=== PATIENT | male | born 1990 | race Caucasian/White ===

== ENCOUNTER 2017-02-27 09:37 | Emergency (ER) | payer OTHER ==
[~2017-02-27] VITALS: Ht 182.9 cm; Wt 90.0 kg
[~2017-02-27 09:37] MED LIST: DOCU-144 PO; TRAM50TA2 PO
[2017-02-27 09:38] VITALS: Ht 182.9 cm; Wt 90.0 kg
[2017-02-27] MEDS ORDERED: HYDROCODONE/APAP (10/325) TAB PO ONE (10:30)
[2017-02-27] MEDS ORDERED: KETOROLAC 30 MG INJ IM STA (11:21)
[2017-02-27] MEDS ORDERED: IBUP-1542 PO (11:51)
[2017-02-27] MEDS ORDERED: HYDR-906 PO (11:52)
--- NOTE | 2017-02-27 11:59 | ERD ---
ER Documentation Chief Complaint Date/Time DATE: 02/27/17 TIME: 11:54 Chief Complaint left foot pain HPI Patient is a 26-year-old male with a history of plantar fasciitis presents emergency department with left foot pain 2 days. Patient states the pain was significantly worse upon waking up this morning. Patient states he took ibuprofen with no relief of symptoms. Patient is unable to bear weight to his left foot due to "burning pain". Patient denies any fevers or chills. Patient denies any trauma or falls. Patient denies any knee pain, ankle pain. Patient denies any previous fractures or dislocations. ROS All systems reviewed and are negative except as per history of present illness. Medications Home Meds Active Scripts Hydrocodone/Acetaminophen ([place] 5-325 Tablet) 1 Each Tablet, 1 TAB PO Q6H Y for PAIN, #10 TAB Prov:TRE BAEZA PA-C 02/27/17 Ibuprofen* (Motrin*) 600 Mg Tab, 600 MG PO Q6, #30 TAB Prov:TRE BAEZA PA-C 02/27/17 Tramadol HCl (Tramadol HCl) 50 Mg Tablet, 50 MG PO Q6 Y for PAIN, #6 TAB Prov:ROMARIO MAURICIO DO 09/24/15 Docusate Sodium* (Colace*) 100 Mg Capsule, 200 MG PO BID, #30 CAP Prov:ROMARIO MAURICIO DO 09/24/15 Allergies Allergies: Coded Allergies: No Known Allergy (Unverified , 03/01/14) PMhx/Soc History of Surgery: Yes (Eye 1993) Anesthesia Reaction: No Hx Neurological Disorder: No Hx Respiratory Disorders: No Hx Cardiac Disorders: No Hx Psychiatric Problems: No Hx Miscellaneous Medical Probl: No Hx Alcohol Use: Yes (socially) Hx Substance Use: Yes (Marijuana) Hx Tobacco Use: Yes Smoking Status: Never smoker FmHx Family History: No diabetes Physical Exam Vitals Vital Signs Date Time Temp Pulse Resp B/P Pulse Ox O2 Delivery O2 Flow Rate FiO2 02/27/17 09:38 98.1 110 18 125/63 99 Physical Exam GENERAL: Well-developed, well-nourished male. Appears in no acute distress. HEAD: Normocephalic, atraumatic. EYES: Pupils are equally reactive bilaterally. EOMs grossly intact. No conjunctival erythema. ENT: Moist mucous membranes. No uvula deviation. No kissing tonsils. NECK: Supple. No meningismus. Normal range of motion of the neck. LUNG: Clear to auscultation bilaterally. No rhonchi, wheezing, rales or coarse breath sounds. EXTREMITIES: Equal pulses bilaterally. No peripheral clubbing, cyanosis or edema. No unilateral leg swelling. NEUROLOGIC: Alert and oriented. Moving all four extremities without any difficulty. Normal speech. Steady gait. SKIN: Normal color. Warm and dry. No rashes or lesions. LEFT FOOT: No deformity, erythema, ecchymosis or swelling. Skin intact. Full ROM of the toes, ankle and knee. Tender to palpation of the midfoot. Pain with bearing weight on foot. Nontender palpation of the fifth metatarsal, ankle or distal tibia/fibula. Sensation intact to light touch. Neurovascularly intact. ( Able to plantarflex, dorsiflex, michael foot, invert foot, raise big toe.) 2+ DP pulses. Results 24 hrs Current Medications Medications (Trade) Dose Ordered Sig/Jocelyn Route PRN Reason Start Time Stop Time Status Last Admin Dose Admin Acetaminophen/ Hydrocodone Bitart (Dover (10/325)) 1 tab ONCE ONCE PO 02/27/17 10:30 02/27/17 10:31 DC 02/27/17 10:22 Ketorolac Tromethamine (Toradol) 30 mg ONCE STAT IM 02/27/17 11:21 02/27/17 11:22 DC 02/27/17 11:29 Procedures/MDM MEDICAL DECISION MAKING: This is a 26-year-old male with a history of plantar fasciitis presents with left foot pain 2 days. Vital signs were reviewed. Patient was afebrile. Denied any fevers, chills, trauma or falls. Patient was offered x-ray imaging here in the ED given the severity of his pain however he declined. Patient states "he knows nothing is broken". Patient was given both Dover and Toradol for his pain. Patient was advised to use cold compresses to the affected region. Given these findings, the patients presentation is most consistent with plantar fasciitis. Unable to rule out any fractures or dislocations at this time, however low suspicion. Low suspicion for lisfranc injury, gout, septic joint, reactive arthritis, psoriatic arthritis, DVT, compartment syndrome or pes planus. At this time, unable to rule out any tendon and ligament injuries. PRESCRIPTIONS: Ibuprofen, Dover DISCHARGE: At this time, patient is stable for discharge and outpatient management. Patient was advised to avoid bearing weight to the affected extremity. Patient given referral information for orthopedic specially if pain persists. RICE therapy and ROM exercises were advised to avoid stiffness. I have instructed the patient to follow-up with his/her primary care physician in 1-2 days. I have discussed with the patient the possibility of needing to see an branch operations specialist for further workup and imaging if the pain persists. I have instructed the patient to promptly return to the ER for any new or worsening symptoms including increased pain, swelling, redness, warmth or fever. The patient and/or family expressed understanding of and agreement with this plan. All questions were answered. Home care instructions were provided. Departure Diagnosis: Primary Impression: Plantar fasciitis of left foot Condition: Stable Patient Instructions: Treating Plantar Fasciitis Referrals: [facility] CLINICS YOU HAVE RECEIVED A MEDICAL SCREENING EXAM AND THE RESULTS INDICATE THAT YOU DO NOT HAVE A CONDITION THAT REQUIRES URGENT TREATMENT IN THE EMERGENCY DEPARTMENT. FURTHER EVALUATION AND TREATMENT OF YOUR CONDITION CAN WAIT UNTIL YOU ARE SEEN IN YOUR DOCTORS OFFICE WITHIN THE NEXT 1-2 DAYS. IT IS YOUR RESPONSIBILITY TO MAKE AN APPOINTMENT FOR FOLOW-UP CARE. IF YOU HAVE A PRIMARY DOCTOR --you should call your primary doctor and schedule an appointment IF YOU DO NOT HAVE A PRIMARY DOCTOR YOU CAN CALL OUR PHYSICIAN REFERRAL HOTLINE AT IF YOU CAN NOT AFFORD TO SEE A PHYSICIAN YOU CAN CHOSE FROM THE FOLLOWING [facility]ICAL ACCESS [facility]OSP[facility] CLINICS [facility] [address] [facility]. [facility] [address] [facility]. [facility] [address] [facility]. [facility] [address] [facility] [address] [facility]. [facility] [address] [facility]. [facility] YOU HAVE RECEIVED A MEDICAL SCREENING EXAM AND THE RESULTS INDICATE THAT YOU DO NOT HAVE A CONDITION THAT REQUIRES URGENT TREATMENT IN THE EMERGENCY DEPARTMENT. FURTHER EVALUATION AND TREATMENT OF YOUR CONDITION CAN WAIT UNTIL YOU ARE SEEN IN YOUR DOCTORS OFFICE WITHIN THE NEXT 1-2 DAYS. IT IS YOUR RESPONSIBILITY TO MAKE AN APPOINTMENT FOR FOLOW-UP CARE. IF YOU HAVE A PRIMARY DOCTOR --you should call your primary doctor and schedule and appointment IF YOU DO NOT HAVE A PRIMARY DOCTOR YOU CAN CALL OUR PHYSICIAN REFERRAL HOTLINE AT . IF YOU CAN NOT AFFORD TO SEE A PHYSICIAN YOU CAN CHOSE FROM THE FOLLOWING [facility] INSTITUTIONS: [facility] [address] [place] [address] [facility] [address] [place], [place] [id number] [place] [address] [address] [place] [address] [facility] Hours: Mon-Fri 9:00 AM - 5:00 PM Additional Instructions: Call your primary care doctor TOMORROW for an appointment during the next 1-2 days.See the doctor sooner or return here if your condition worsens before your appointment time. TRE BAEZA PA-C Feb 27, 2017 11:59
== END 2017-02-27 11:58 | disposition home or self-care (01) ==
LOC: FTE 09:37
DX: M72.2 Plantar fascial fibromatosis (principal); Z87.891 Personal history of nicotine dependence
CPT/HCPCS: 96372; J1885; Z7502; Z7610

== ENCOUNTER 2017-07-11 05:36 | Emergency (ER) | payer OTHER ==
[~2017-07-11] VITALS: Ht 180.3 cm; Wt 77.2 kg
[~2017-07-11 05:36] MED LIST changes: +HYDR-906 PO; +IBUP-1542 PO
[2017-07-11 05:42] VITALS: Ht 180.3 cm; Wt 77.2 kg
[2017-07-11] MEDS ORDERED: SULF1TAB31 PO (06:19)
[2017-07-11] MEDS ORDERED: MUPI22OI2 TOP (06:19)
[2017-07-11] MEDS ORDERED: CEPH-443 PO (06:19)
--- NOTE | 2017-07-11 06:35 | ERD ---
ER Documentation Chief Complaint Chief Complaint painless rash at back of neck x 4 days HPI 27-year-old male presents with a rash to the back of his neck that started 4 days ago. The patient states that he went to get a haircut as well as his eyebrows shaped, and since then he has developed a rash, that have pustules. There is some pus draining from the area. They are slightly painful but not bothersome to the patient. ROS All systems reviewed and are negative except as per history of present illness. Medications Home Meds Active Scripts Cephalexin* (Keflex*) 500 Mg Capsule, 500 MG PO QID for 7 Days, CAP Prov:VAIBHAV HORVATH PA-C 07/11/17 Sulfamethoxazole/Trimethoprim* (Bactrim Ds* Tablet) 1 Each Tablet, 1 TAB PO BID , #14 TAB Prov:VAIBHAV HORVATH PA-C 07/11/17 Mupirocin* (Bactroban*) 2% -22 Gram Oint...g., 1 APPLIC TOP BID for 7 Days, EA Prov:VAIBHAV HORVATH PA-C 07/11/17 Hydrocodone/Acetaminophen ([place] 5-325 Tablet) 1 Each Tablet, 1 TAB PO Q6H Y for PAIN, #10 TAB Prov:TRE BAEZA PA-C 02/27/17 Ibuprofen* (Motrin*) 600 Mg Tab, 600 MG PO Q6, #30 TAB Prov:TRE BAEZA PA-C 02/27/17 Tramadol HCl (Tramadol HCl) 50 Mg Tablet, 50 MG PO Q6 Y for PAIN, #6 TAB Prov:ROMARIO MAURICIO DO 09/24/15 Docusate Sodium* (Colace*) 100 Mg Capsule, 200 MG PO BID, #30 CAP Prov:ROMARIO MAURICIO DO 09/24/15 Allergies Allergies: Coded Allergies: No Known Allergy (Unverified , 03/01/14) PMhx/Soc History of Surgery: Yes (Eye 1993) Anesthesia Reaction: No Hx Neurological Disorder: No Hx Respiratory Disorders: No Hx Cardiac Disorders: No Hx Psychiatric Problems: No Hx Miscellaneous Medical Probl: Yes (arthritis) Hx Alcohol Use: Yes (socially) Hx Substance Use: Yes (Marijuana) Hx Tobacco Use: Yes Smoking Status: Current some day smoker Physical Exam Vitals Vital Signs Date Time Temp Pulse Resp B/P Pulse Ox O2 Delivery O2 Flow Rate FiO2 07/11/17 05:42 98.2 105 20 131/75 99 Physical Exam General: Well-developed, well-nourished. The patient appears in no acute distress. HEENT: Head is normocephalic, atraumatic. No scleral icterus. Multiple small follicles filled with pus to the back of the scalp on the neck region. There is yellow crusting surrounding these lesions. Nonvesicular. Neck: Supple. Nontender. Lungs: Clear to auscultation. Normal air movement. Heart: Regular rate and rhythm. S1 and S2 are normal. No murmurs, gallops, or rubs. Abdomen: Nondistended. Extremities: No clubbing or cyanosis. Moving extremities x 4. No weakness. Neurologic: Alert and oriented 3. No focal deficits. Normal speech and gait. Skin: Normal turgor. No rash or lesions. Procedures/MDM 27-year-old male presents with folliculitis to the back of the scalp, patient likely presents with a staph infection given the presentation, will be also treated with Bactroban given the crusting appearance. There are no signs of HSV , shingles, deep space infection, abscess. Departure Diagnosis: Primary Impression: Rash Condition: Good Patient Instructions: Cellulitis Additional Instructions: Call your primary care doctor TOMORROW for an appointment during the next 1-2 days.See the doctor sooner or return here if your condition worsens before your appointment time. VAIBHAV HORVATH PA-C Jul 11, 2017 06:35
== END 2017-07-11 06:35 | disposition home or self-care (01) ==
LOC: FTE 05:36
DX: R21 Rash and other nonspecific skin eruption (principal); F17.210 Nicotine dependence, cigarettes, uncomplicated
CPT/HCPCS: 99284

== ENCOUNTER 2017-08-09 09:13 | Emergency (ER) | payer OTHER ==
[~2017-08-09] VITALS: Ht 180.3 cm; Wt 72.4 kg
[~2017-08-09 09:13] MED LIST changes: +CEPH-443 PO; +MUPI22OI2 TOP; +SULF1TAB31 PO
[2017-08-09 09:15] VITALS: Ht 180.3 cm; Wt 72.4 kg
[2017-08-09] MEDS ORDERED: ONDANSETRON (ODT) 4 MG TAB ODT STA (09:34)
[2017-08-09] MEDS ORDERED: ACETAMINOPHEN 500 MG TAB PO STA (09:34)
[2017-08-09] MEDS ORDERED: IBUPROFEN 800 MG TAB PO ONE (10:00)
--- NOTE | 2017-08-09 10:21 | RADRPT ---
PROCEDURE: Chest x-ray CLINICAL INDICATION: Abdominal pain TECHNIQUE: Chest single view COMPARISON: None FINDINGS: The heart is normal in size. The pulmonary vessels are normal in caliber. The lungs are clear. Th e costophrenic angles are sharp. The visualized bony thorax is unremarkable. IMPRESSION: No acute cardiopulmonary disease. RPTAT: HH .Nacho Felix MD, Date Time Electronically viewed and signed by .Nacho Felix MD, MD on 08/09/2017 10:20 .W/
[2017-08-09 10:22] LABS: BASOPHILS % 0.5 % (0.0-2.0); EOSINOPHILS # 0.2 10^3/ul (0.0-0.5); EOSINOPHILS % 5.3 % (0.0-7.0); HEMATOCRIT 46.8 % (42.0-52.0); HEMOGLOBIN 16.3 g/dl (14.0-18.0); LYMPHOCYTES # 1.1 10^3/ul (0.8-2.9); LYMPHOCYTES % 26.8 % (15.0-51.0); MEAN CORPUSCULAR HEMOGLOBIN 31.6 pg (29.0-33.0); MEAN CORPUSCULAR HGB CONC 34.8 g/dl (32.0-37.0); MEAN CORPUSCULAR VOLUME 90.7 fl (82.0-101.0); MONOCYTE # 0.6 10^3/ul (0.3-0.9); MONOCYTES % 14.9 % (0.0-11.0); NEUTROPHIL # 2.1 10^3/ul (1.6-7.5); NEUTROPHILS % 52.5 % (39.0-77.0); PLATELET COUNT 158 10^3/UL (140-415); RED BLOOD COUNT 5.16 10^6/ul (4.70-6.10); RED CELL DISTRIBUTION WIDTH 12.3 % (11.5-14.5)
[2017-08-09 10:24] LABS: ADD UMIC YES; UR ASCORBIC ACID 40 mg/dL (NEGATIVE); UR BILIRUBIN (Dip) NEGATIVE (NEGATIVE); UR BLOOD (Dip) NEGATIVE (NEGATIVE); UR CLARITY CLEAR (CLEAR); UR COLOR YELLOW (YELLOW); UR GLUCOSE (Dip) NEGATIVE (NEGATIVE); UR KETONES (Dip) TRACE mg/dL (NEGATIVE); UR LEUKOCYTE ESTERASE (Dip) NEGATIVE Leu/ul (NEGATIVE); UR MUCUS FEW /HPF (NONE SEEN); UR NITRITE (Dip) NEGATIVE (NEGATIVE); UR RBC 1 /HPF (0-5); UR SPECIFIC GRAVITY (Dip) 1.029 (1.003-1.030); UR TOTAL PROTEIN (Dip) 1+ mg/dl (NEGATIVE); UR UROBILINOGEN (Dip) 1+ mg/dL (NEGATIVE)
[2017-08-09 10:57] LABS: ALBUMIN 4.3 g/dl (3.3-4.9); ALBUMIN/GLOBULIN RATIO 1.3; BILIRUBIN,INDIRECT 0.4 mg/dl (0-1.1); BILIRUBIN,TOTAL 0.4 mg/dl (0.2-1.3); CALCIUM 9.8 mg/dl (8.4-10.2); CREATININE 1.41 mg/dl (0.61-1.24); TOTAL PROTEIN 7.6 g/dl (6.1-8.1)
[2017-08-09] MEDS ORDERED: ACET325T33 PO (11:44)
[2017-08-09] MEDS ORDERED: IBUP-1542 PO (11:45)
[2017-08-09 11:57] VITALS: BP 111/85; PULSE 89; RESP 20; TEMP 98
--- NOTE | 2017-08-09 12:10 | ERD ---
ER Documentation Chief Complaint Chief Complaint Complains of nausea and vomiting HPI 27 yr old male complaining of vomiting and sore throat, body aches and headache. Mild cough. Positive sick contacts. Has taken nyquil with no alleviation of symptoms. ROS All systems reviewed and are negative except as per history of present illness. Medications Home Meds Active Scripts Ibuprofen* (Motrin*) 600 Mg Tab, 600 MG PO Q6H Y for PAIN AND OR ELEVATED TEMP, #30 TAB Prov:GAMALIEL CÁRDENAS PA-C 08/09/17 Acetaminophen* (Tylenol*) 325 Mg Tablet, 2 TAB PO Q6 Y for PAIN AND OR ELEVATED TEMP, #20 TAB Prov:GAMALIEL CÁRDENAS PA-C 08/09/17 Cephalexin* (Keflex*) 500 Mg Capsule, 500 MG PO QID for 7 Days, CAP Prov:VAIBHAV HORVATH PA-C 07/11/17 Sulfamethoxazole/Trimethoprim* (Bactrim Ds* Tablet) 1 Each Tablet, 1 TAB PO BID , #14 TAB Prov:VAIBHAV HORVATH PA-C 07/11/17 Mupirocin* (Bactroban*) 2% -22 Gram Oint...g., 1 APPLIC TOP BID for 7 Days, EA Prov:VAIBHAV HORVATH PA-C 07/11/17 Hydrocodone/Acetaminophen ([place] 5-325 Tablet) 1 Each Tablet, 1 TAB PO Q6H Y for PAIN, #10 TAB Prov:TRE BAEZA PA-C 02/27/17 Ibuprofen* (Motrin*) 600 Mg Tab, 600 MG PO Q6, #30 TAB Prov:TRE BAEZA PA-C 02/27/17 Tramadol HCl (Tramadol HCl) 50 Mg Tablet, 50 MG PO Q6 Y for PAIN, #6 TAB Prov:ROMARIO MAURICIO DO 09/24/15 Docusate Sodium* (Colace*) 100 Mg Capsule, 200 MG PO BID, #30 CAP Prov:ROMARIO MAURICIO DO 09/24/15 Allergies Allergies: Coded Allergies: No Known Allergy (Unverified , 03/01/14) PMhx/Soc History of Surgery: Yes (L Eye Surg (1993)) Anesthesia Reaction: No Hx Neurological Disorder: No Hx Respiratory Disorders: No Hx Cardiac Disorders: No Hx Psychiatric Problems: No Hx Miscellaneous Medical Probl: Yes (Arthritis) Hx Alcohol Use: Yes (Socially) Hx Substance Use: Yes (Marijuana) Hx Tobacco Use: No Smoking Status: Unknown if ever smoked Physical Exam Vitals Vital Signs Date Time Temp Pulse Resp B/P Pulse Ox O2 Delivery O2 Flow Rate FiO2 08/09/17 11:57 98.0 89 20 111/85 96 Room Air 08/09/17 09:15 98.3 89 20 127/83 99 Physical Exam GENERAL: The patient is well-appearing, well-nourished, in no acute distress HEENT: Atraumatic. Conjunctivae are pink. Pupils equal, round, and reactive to light. There is no scleral icterus. Tympanic membranes clear bilaterally. Oropharynx clear. No nystagmus or photophobia. NECK: C-spine is soft and supple. There is no meningismus. There is no cervical lymphadenopathy. No JVD. No bruits. No goiter. CHEST: Clear to auscultation bilaterally. There are no rales, wheezes or rhonchi. HEART: Regular rate and rhythm. No murmurs, clicks, rubs or gallops. No S3 or S4. ABDOMEN:Soft, nontender and nondistended. Good bowel sounds. No rebound or guarding. No gross peritonitis. No gross organomegaly or masses. No Herrera sign or McBurney point tenderness. BACK: No midline or flank tenderness. Result Diagram: 08/09/1759 08/09/1759 Results 24 hrs Laboratory Tests Test 08/09/17 09:48 08/09/17 09:59 Urine Color YELLOW Urine Clarity CLEAR Urine pH 5.0 Urine Specific [place] 1.029 Urine Ketones TRACEmg/dL Urine Nitrite NEGATIVEmg/dL Urine Bilirubin NEGATIVEmg/dL Urine Urobilinogen 1+mg/dL Urine Leukocyte Esterase NEGATIVELeu/ul Urine Microscopic RBC 1/HPF Urine Microscopic WBC 6/HPF Urine Mucus FEW/HPF Urine Hemoglobin NEGATIVEmg/dL Urine Glucose NEGATIVEmg/dL Urine Total Protein 1+mg/dl White Blood Count 4.010^3/ul Red Blood Count 5.1610^6/ul Hemoglobin 16.3g/dl Hematocrit 46.8% Mean Corpuscular Volume 90.7fl Mean Corpuscular Hemoglobin 31.6pg Mean Corpuscular Hemoglobin Concent 34.8g/dl Red Cell Distribution Width 12.3% Platelet Count 95849^3/UL Mean Platelet Volume 11.0fl Neutrophils % 52.5% Lymphocytes % 26.8% Monocytes % 14.9% Eosinophils % 5.3% Basophils % 0.5% Nucleated Red Blood Cells % 0.0/100WBC Neutrophils # 2.110^3/ul Lymphocytes # 1.110^3/ul Monocytes # 0.610^3/ul Eosinophils # 0.210^3/ul Basophils # 0.010^3/ul Nucleated Red Blood Cells # 0.010^3/ul Sodium Level 144mmol/L Potassium Level 3.0mmol/L Chloride Level 101mmol/L Carbon Dioxide Level 30mmol/L Anion Gap 16 Blood Urea Nitrogen 18mg/dl Creatinine 1.41mg/dl Glucose Level 87mg/dl Calcium Level 9.8mg/dl Total Bilirubin 0.4mg/dl Direct Bilirubin 0.00mg/dl Indirect Bilirubin 0.4mg/dl Aspartate Amino Transf (AST/SGOT) 36IU/L Alanine Aminotransferase (ALT/SGPT) 37IU/L Alkaline Phosphatase 105IU/L Total Protein 7.6g/dl Albumin 4.3g/dl Globulin 3.30g/dl Albumin/Globulin Ratio 1.30 Lipase 135U/L Current Medications Medications (Trade) Dose Ordered Sig/Jocelyn Route PRN Reason Start Time Stop Time Status Last Admin Dose Admin Acetaminophen (Tylenol Tab) 1,000 mg ONCE STAT PO 08/09/17 09:34 08/09/17 09:36 DC 08/09/17 09:52 Ibuprofen (Motrin) 800 mg ONCE ONCE PO 08/09/17 10:00 08/09/17 10:01 DC 08/09/17 09:52 Ondansetron HCl (Zofran Odt) 4 mg ONCE STAT ODT 08/09/17 09:34 08/09/17 09:36 DC 08/09/17 09:52 Procedures/MDM ER Course: Ibuprofen and Tylenol given in ED MDM: 27-year-old male complaining of nausea with vomiting. Patient's blood work is within normal limits and patient's symptoms improved after taking ibuprofen and Tylenol. Patient's exam is non-concerning. I have low suspicion for meningitis or sepsis. I have low suspicion for pneumonia. I have low suspicion for acute abdomen. I have low suspicion for bacterial HEENT infection. I believe symptoms are likely associated with viral syndrome. Patient is discharged with strict ER precautions and told to return to the ER symptoms change or worsen. All questions answered at discharge. Departure Diagnosis: Primary Impression: Viral illness Condition: Stable Patient Instructions: Viral Syndrome (Adult) Additional Instructions: FOLLOW UP WITH YOUR PRIMARY CARE PHYSICIAN TOMORROW.Return to this facility if you are not improving as expected. GAMALIEL CÁRDENAS PA-C Aug 09, 2017 12:10
== END 2017-08-09 11:58 | disposition home or self-care (01) ==
LOC: FTE 09:13
DX: B34.9 Viral infection, unspecified (principal)
CPT/HCPCS: 36415; 71010; 80053; 81001; 83690; 85025; 87400; Z7502; Z7610

== ENCOUNTER 2018-02-03 19:28 | Emergency (ER) | END 2018-02-03 22:24 | disposition home or self-care (01) ==

== ENCOUNTER 2018-02-14 02:56 | Emergency (ER) | END 2018-02-14 05:00 | disposition home or self-care (01) ==

== ENCOUNTER 2018-02-18 20:55 | Emergency (ER) | END 2018-02-18 23:33 | disposition home or self-care (01) ==

== ENCOUNTER 2018-04-03 19:45 | Emergency (ER) | END 2018-04-03 21:35 | disposition short-term general hospital (02) ==